=== PATIENT | female | born 1970 | race Two or more races ===

== ENCOUNTER → 2024-12-10 | Outpatient (CLI) | payer MEDICAID, SELFPAY ==
--- NOTE | 2024-12-10 | XR_ITS ---
Examination: Lumbar spine, 5 views Technique: Lumbar spine AP, lateral, coned lateral lower lumbar spine, bilateral obliques 5 views Exam date and time: December 10, 2024 1301 hours INDICATIONS: Low back pain months. FINDINGS: Moderate osteopenia Lumbar levoscoliosis 10 degrees Diffuse moderate facet arthropathy No lumbar fracture Moderate to advanced lumbar degenerative disc disease, advanced L5-S1 IMPRESSION: Diffuse moderate to advanced lumbar degenerative disc disease, advanced L5-S1
== END | disposition home or self-care (01) ==
LOC: CDIM 12:08
PROVIDERS: PCP Physician Assistant; Referring Provider Physician Assistant; Visit Provider Physician Assistant
DX: M51.369 Other intervertebral disc degeneration, lumbar region without mention of lumbar back pain or lower extremity pain (principal); M51.379 Other intervertebral disc degeneration, lumbosacral region without mention of lumbar back pain or lower extremity pain
CPT/HCPCS: 72110

== ENCOUNTER 2024-12-16 08:30 | Day surgery (SDC) | payer MEDICAID, SELFPAY ==
[2024-12-16] VITALS (10 sets, daily range): BP systolic 131–171; BP diastolic 87–102; PULSE 57–70; RESP 12–22; TEMP 36.2–37.1; O2SAT 94–100; BMI 34.9
[2024-12-16] MEDS: DiphenhydrAMINE INJ 50 MG/ML VIAL 25 MG IV (09:57)
[2024-12-16] MEDS: fentaNYL CIT INJ 50 mCg/ML AMP 2ML (ASD USE ONLY) IV (10:04)
[2024-12-16] MEDS: MEPERIDINE INJ 25 MG/ML VIAL (ASD USE ONLY) 50 MG IV (10:08)
[2024-12-16] MEDS: MIDAZOLAM INJ 1 MG/ML VIAL 2 ML (ASD USE ONLY) 2 MG IV (10:08)
== END 2024-12-16 10:59 | disposition home or self-care (01) ==
PROVIDERS: PCP Physician Assistant; Referring Provider Surgery; Visit Provider Surgery
PROC: 0DBE8ZX Excision of Large Intestine, Via Natural or Artificial Opening Endoscopic, Diagnostic (ICD-10-PCS; CPT 45380; principal; 2024-12-16 10:45)
DX: Z12.11 Encounter for screening for malignant neoplasm of colon (principal); Z80.0 Family history of malignant neoplasm of digestive organs; K57.30 Diverticulosis of large intestine without perforation or abscess without bleeding
CPT/HCPCS: 45378; J1200; J2175; J2250; J3010

== ENCOUNTER 2024-12-22 10:53 | Outpatient (AMB) | payer MEDICAID, SELFPAY ==
[2024-12-22 11:03] VITALS: BP 135/85; PULSE 62; RESP 18; TEMP 36.3; O2SAT 97; BMI 35.0
--- NOTE | 2024-12-22 11:03 | PD.GSCLVISIT ---
Vital Signs - [facility] 12/22/24 11:03 Height 1.65 m Height Method Stated Weight 95.51 kg Weight Measurement Method Standing Scale BMI 35.0 BP 135/85 H Blood Pressure Source Automatic Cuff Blood Pressure Location Left Upper Arm Position Sitting Respiration 18 Pulse 62 Pulse Source Monitor Temp 97.4 F Temp Source Temporal Artery Scan Pulse Oximetry (%) 97 Oxygen Delivery Method Room Air Med/Allergies Allergies & Medications Allergies No Known Allergies Allergy (Verified 12/22/24 11:04) Medication Reconciliation levocetirizine 5 mg tablet 5 mg PO QDAY PRN allergy symptoms 12/16/24 [History Confirmed 12/22/24] MA Intake Visit Data Collection New Patient or Established: Established Patient (seen at [facility] within 3 years) Seen by Clinical Staff ONLY (RN/MA): No Reason for Visit:: COLONOSCOPY RESULTS Pain Present Currently: No PCP or OBGYN visit in last 3 months: Yes Hx Now: No Do You Feel Safe at Home: Yes Authorities Contacted: N/A Smoking Status Smoking Status: Never smoker Immunization / Flu Flu Vaccine in the Last 12 Months: No Flu Vaccine Exclusion Criteria: Refused by Patient Past Medical History Past Medical History NEUROLOGIC: Negative Neurological Disorders or Seizures CARDIAC: Negative Cardiac Disorders or Congestive Heart Failure RESPIRATORY: Negative Chronic Obstructive Pulmonary Disease (COPD) GASTROINTESTINAL: Negative Gastrointestinal Disorders GENITOURINARY: Negative Genitourinary Disorders or Renal Disease ENDOCRINE: Negative Endocrine Disorders, Diabetes Mellitus Type 1 or Diabetes Mellitus Type 2 HEMATOLOGIC: Negative Blood Disorders OTHER HISTORY: Negative Hospitalization, Autoimmune Disease, Down Syndrome, Developmental Delay, Shingles, Falls, Blood Transfusions, Blood Transfusion Reaction, Anesthesia Reactions, Organ Transplant, Chemotherapy, Radiation Therapy, Hyperbaric Therapy or Cancer Family History FAMILY HISTORY: Positive Family Gastrointestinal Problems (Colon cancer); Negative Family Respiratory Disorders, Family Cardiac Disorders or Family Anesthesia Reaction Surgical History SURGICAL: Negative Organ Transplant Social History SMOKING STATUS: Smoking status: Never smoker SECOND HAND EXPOSURE: second hand exposure: No ALCOHOL: Alcohol Intake: Never HOUSING: Housing: House LIVES WITH: Lives With: Family HPI HPI Narrative 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 Pt reports feeling well overall with no complaints ROS Review of Systems Systems Reviewed: All systems reviewed, normal except as documented Objective/Exam General General Appearance: alert, cooperative and well groomed Resp Respiratory exam: Absent respiratory distress Results Colonoscopy report reviewed Assessment & Plan Diagnosis / Problem List (1) Encounter to discuss colonoscopy results: Status: Acute Assessment & Plan: 54F with history of colon CA in mother (unknown age) here for follow up of colonoscopy which was negative aside from diverticulosis. I explained that because of her family history she should undergo screening at least every 5 years. All questions were answered and pt expressed understanding Office Procedures GNS Level of Care Nursing/Assessment Patient Status: Established Patient Nursing Assessment/Reassesment: Medication Reconciliation, Update PMH in EMR and Vital Signs Coordination of Care: Complex Care and Chronic Disease 1-5, Consent,records obtained, informed consent, Education Simp Pt/Fam, Results/Orders obtained and Staff clarify orders Established Patient Charge Established Patient Point Assignment: 90 Established Patient Point Charge: EP Level 3 (80-115) Patient Portal Questionaires Social History Living Situation History Housing: House Tobacco History Smoking Status: Never smoker Second Hand Smoke Exposure: No Alcohol History Alcohol Intake: Never Domestic Abuse History Do You Feel Safe at Home: Yes Review of Systems Report any current symptoms Only answer those that you have currently: Past Medical History Past Medical History Have you ever been diagnosed with any of the following: Neurological Problems Seizures: No Cardiology Problems Congestive Heart Failure: No Respiratory Problems Chronic Obstructive Pulmonary Disease (COPD): No Genital/Urinary Problems Renal Disease: No Endocrine Problems Diabetes Mellitus Type 1: No Diabetes Mellitus Type 2: No Other Problems Hospitalization: No Autoimmune Disease: No Down Syndrome: No Developmental Delay: No Shingles: No Falls: No Blood Transfusions: No Blood Transfusion Reaction: No Anesthesia Reactions: No Organ Transplant: No Chemotherapy: No Radiation Therapy: No Hyperbaric Therapy: No Cancer: No
== END 2024-12-22 11:34 | disposition home or self-care (01) ==
LOC: HODSRG 10:53
PROVIDERS: PCP Physician Assistant; Referring Provider Physician Assistant; Supervising Provider Surgery; Visit Provider Surgery
DX: Z71.2 Person consulting for explanation of examination or test findings (principal); K57.90 Diverticulosis of intestine, part unspecified, without perforation or abscess without bleeding; Z80.0 Family history of malignant neoplasm of digestive organs
CPT/HCPCS: 99213; G0463

== ENCOUNTER → 2025-01-02 | Outpatient (CLI) | payer MEDICAID, SELFPAY ==
--- NOTE | 2025-01-02 14:30 | XR_ITS ---
Examination: Screening digital mammography, bilateral Computer aided detection 3-D breast Tomosynthesis, bilateral Date and time of exam: 01/02/2025, 2:30 PM Comparisons: January 2019 through November 2013 Indications: Screening Technique: Nonmagnified MLO, CC views of the breasts to been obtained, reconstructed from 3-D Tomosynthesis images. R2 computer aided detection program utilized for evaluation of suspicious masses and/or abnormal calcifications. 3-D Tomosynthesis images obtained. Technologist: Findings: The breasts are almost entirely fatty. No evidence of suspicious masses or suspicious calcifications. Stable benign 7 mm mass left breast. Impression: BI-RADS category 1: Negative findings (within normal) Recommend 1 year follow-up mammogram
== END | disposition home or self-care (01) ==
LOC: CDIM 14:18
PROVIDERS: Referring Provider Physician Assistant; Visit Provider Physician Assistant
DX: Z12.31 Encounter for screening mammogram for malignant neoplasm of breast (principal); R92.313 Mammographic fatty tissue density, bilateral breasts
CPT/HCPCS: 77063; 77067

== ENCOUNTER → 2025-02-09 | Outpatient (CLI) | payer MEDICAID, SELFPAY ==
--- NOTE | 2025-02-09 07:00 | XR_ITS ---
Examination: MRI lumbar spine without contrast Date and time of exam: February 09, 2025 0653 hours INDICATION: Left-sided lower back pain 8 years worse the last 2 months Technique: Multiple MRI axial and sagittal sections lumbar spine. Sagittal T2-weighted images, TR 3500, TE 118 T1 weighted transverse sections, TR 688 T8.5, T2-weighted sagittal sections T1 weighted sagittal sections TR 621, TE 30 T2 axial sections, TR 4, 190, TE 84. Findings: Moderate narrowing L5-S1 disc Adequate marrow signal lumbar vertebral bodies. Diffuse lumbar disc desiccation L5-S1 4 mm central lumbar disc bulge contiguous with the S1 nerve roots L4-L5 4 mm central lumbar disc bulge L3-L4 no disc protrusion L2-L3 2 mm central lumbar disc bulge L1-L2 no disc protrusion IMPRESSION: L5-S1, L4-L5 4 mm at stenosis of the central lumbar disc bulges
== END | disposition home or self-care (01) ==
LOC: SMRI 06:44
PROVIDERS: PCP Physician Assistant; Referring Provider Physician Assistant; Visit Provider Physician Assistant
DX: M51.360 Other intervertebral disc degeneration, lumbar region with discogenic back pain only (principal); M51.370 Other intervertebral disc degeneration, lumbosacral region with discogenic back pain only; M48.061 Spinal stenosis, lumbar region without neurogenic claudication; M48.07 Spinal stenosis, lumbosacral region
CPT/HCPCS: 72148